=== PATIENT | male | born 1990 | race Caucasian/White ===

== ENCOUNTER 2022-08-06 23:47 | Emergency (ER) | payer OTHER ==
[~2022-08-06] VITALS: Ht 175.3 cm; Wt 102.1 kg
[2022-08-07] MEDS ORDERED: DEXAMETHASONE SOD PHOSPHATE 10 MG/ML VIAL ONE (00:22)
[2022-08-07] MEDS ORDERED: DEXAMETHASONE SOD PHOSPHATE 4 MG/ML VIAL IM ONE (00:30)
--- NOTE | 2022-08-07 01:57 | NUR ---
COVID SWAB COLLECTED
--- NOTE | 2022-08-07 03:11 | NUR ---
Patient discharged to home in stable condition. Written and verbal after care instructions given. Patient verbalizes understanding of instruction.
[2022-08-07 03:12] VITALS: BP 133/80
== END 2022-08-07 03:12 | disposition home or self-care (01) ==
LOC: ER 23:51
DX: J35.2 Hypertrophy of adenoids (principal); Z20.822 Contact with and (suspected) exposure to COVID-19; F90.9 Attention-deficit hyperactivity disorder, unspecified type
CPT/HCPCS: 99285; 70490; 87426; 96372; 87880; J1100; C9803; 86403-TC